=== PATIENT | female | born 1940 | race Hispanic/Latino ===

== ENCOUNTER 2016-10-17 12:10 | Inpatient (IN) | payer MEDICARE, OTHER ==
--- NOTE | 2016-10-17 13:17 | ED PDOC ---
Arrival/HPI - General Chief Complaint: Medical Clearance Time Seen by Provider: 10/17/16 12:23 Historian: Patient - History of Present Illness Narrative History of Present Illness (Text): 10/17/16 13:01 Zara Santamaria is a 76 year old female, with a history of hypertension, hyperlipidemia, urinary incontinence secondary to overactive bladder, who was sent to emergency department by PMD, , for elevated creatinine level. Patient's baseline is at 1 mg/dL which was recently elevated to 3.3 mg/dL. Patient also complains of 3 week duration of generalized weakness, chills, night sweats and occasional headache. She has also developed a cough over the past 2 days. Notes that she has increased urge to urinate once every 2 hours at night, but denies any pain or burning sensation while urinating. Denies fever, chills, dizziness, shortness of breath, chest pain, nausea, vomiting, diarrhea or any other complaints at this time. PMD; Dr. Caro Time/Duration: < week Symptom Onset: Gradual Symptom Course: Unchanged Severity Level: Mild Activities at Onset: Light Past Medical History - Provider Review Nursing Documentation Reviewed: Yes - Past History Past History: Non-Contributing - Infectious Disease Hx of Infectious Diseases: None - Cardiac Hx Pacemaker: No - Pulmonary Hx Chronic Obstructive Pulmonary Disease (COPD): Yes - Neurological Hx Paralysis: No - Hematological/Oncological Hx Blood Transfusions: No Hx Blood Transfusion Reaction: No - Musculoskeletal/Rheumatological Hx Musculoskeletal Disorders: No - Psychiatric Hx Emotional Abuse: No Hx Physical Abuse: No Hx Substance Use: No - Surgical History Other/Comment: Fibroid cyst - rt. breast - Anesthesia Hx Anesthesia Reactions: No Hx Malignant Hyperthermia: No - Suicidal Assessment Feels Threatened In Home Enviroment: No Family/Social History - Physician Review Nursing Documentation Reviewed: Yes Family/Social History: No Known Family HX Smoking Status: Former Smoker Hx Alcohol Use: Yes (SOCIALLY) Hx Substance Use: No Allergies/Home Meds Allergies/Adverse Reactions: Allergies fructose Allergy (Verified 10/17/16 12:45) NAUSEA lactose Allergy (Verified 10/17/16 12:45) NAUSEA mirabegron [From Myrbetriq] Allergy (Verified 10/17/16 12:45) ANAPHYLAXIS sucralose [From Splenda (sucralose)] Allergy (Verified 10/17/16 12:45) NAUSEA Home Medications: Home Meds Medication Instructions Recorded Confirmed RX: Citalopram Hydrobromide 40 mg PO DAILY 01/26/16 05/07/16 [Citalopram HBr] RX: Multivitamin [Multivitamins] 1 cap PO DAILY 01/26/16 05/07/16 Lipo-Flavinoid 1 tab PO BID 01/27/16 05/07/16 Lisinopril [Zestril] 20 mg PO DAILY 05/02/16 05/07/16 Vit C/E/Zn/Coppr/Lutein/Zeaxan 1 tab PO BID 05/02/16 05/07/16 [Preservision Areds 2 Softgel] RX: Omeprazole 40 mg PO DAILY 05/07/16 05/07/16 Review of Systems - Physician Review All systems were reviewed & negative as marked: Yes - Review of Systems Constitutional: Fatigue (generalized weakness ). absent: Fevers Respiratory: Normal, Cough. absent: SOB, Sputum Cardiovascular: Normal. absent: Chest Pain Gastrointestinal: Normal. absent: Abdominal Pain, Diarrhea, Nausea, Vomiting Genitourinary Female: Frequency. absent: Dysuria, Hematuria Neurological: Headache. absent: Dizziness Psychiatric: Normal Physical Exam Vital Signs Reviewed: Yes Vital Signs Temp Pulse Resp BP Pulse Ox 10/17/16 12:40 98 F 90 18 106/64 97 Temperature: Afebrile Blood Pressure: Normal Pulse: Regular Respiratory Rate: Normal Appearance: Positive for: Well-Appearing, Non-Toxic, Comfortable Pain Distress: None Mental Status: Positive for: Alert and Oriented X 3 - Systems Exam Head: Present: Atraumatic, Normocephalic Pupils: Present: PERRL Conjunctiva: Present: Normal Respiratory/Chest: Present: Clear to Auscultation, Good Air Exchange. No: Respiratory Distress, Accessory Muscle Use Cardiovascular: Present: Regular Rate and Rhythm, Normal S1, S2. No: Murmurs Abdomen: Present: Normal Bowel Sounds. No: Tenderness, Distention, Peritoneal Signs Neurological: Present: GCS=15, CN II-XII Intact, Speech Normal Skin: Present: Warm, Dry, Normal Color. No: Rashes Psychiatric: Present: Alert, Oriented x 3, Normal Insight, Normal Concentration Medical Decision Making ED Course and Treatment: 10/17/16 13:19 Impression: A 76 year old female who presents to the emergency department for elevated creatinine level of 3.3. Also notes of 3 week duration of generalized weakness, chills, night sweats and occasional headache. Developed a non- productive cough 2 days ago. Differential Diagnosis include but are not limited to: Acute Renal Failure vs Electrolyte abn vs Pneumonia Plan: -- EKG -- Labs -- Chest X-ray -- Urine culture -- Urinalysis -- Reassess and disposition Progress Notes: 10/17/16 13:22 EKG interpreted by me: Sinus Lito at 56 bpm. normal axis normal interval. 10/17/16 14:21 CXR negative for PNA. Potassium mildly elevated and Kayexalate ordered. Creatinine elevated more than previous. Discussed case with Dr. Barbosa who will place on full admission under his service. - Lab Interpretations Lab Results: 10/17/16 13:40 10/17/16 13:40 Lab Results 10/17/16 13:40: WBC 7.6, RBC 3.28 L, Hgb 9.3 L, Hct 28.1 L, MCV 85.7, MCH 28.4, MCHC 33.1, RDW 14.3, Plt Count 460 H, MPV 9.2, Gran % 71.7 H, Lymph % (Auto) 17.9 L, Hancock % (Auto) 5.5, Eos % (Auto) 4.0, Baso % (Auto) 0.9, Gran # 5.44, Lymph # 1.4, Hancock # 0.4, Eos # 0.3, Baso # 0.07, Sodium 134, Potassium 5.1 H, Chloride 103, Carbon Dioxide 20 L, Anion Gap 16, BUN 46 H, Creatinine 3.4 H, Est GFR ( Amer) 16, Est GFR (Non-Af Amer) 13, Random Glucose 87, Calcium 9.1, Total Bilirubin 0.5, AST 38, ALT 21, Alkaline Phosphatase 117, Total Protein 8.3, Albumin 3.5, Globulin 4.7, Albumin/Globulin Ratio 0.7 L I have reviewed the lab results: Yes - RAD Interpretation Radiology Orders: 10/17/16 13:06 CXR [CHEST PORTABLE] [RAD] Stat Business Line Manager: Radiologist - EKG Interpretation Interpreted by ED Physician: Yes Type: 12 lead EKG - Scribe Statement The provider has reviewed the documentation as recorded by the Scribe Rowan Palmerraman Provider Attestation: All medical record entries made by the Becca were at my direction and personally dictated by me. I have reviewed the chart and agree that the record accurately reflects my personal performance of the history, physical exam, medical decision making, and the department course for this patient. I have also personally directed, reviewed, and agree with the discharge instructions and disposition. Disposition/Present on Arrival - Present on Arrival Any Indicators Present on Arrival: No History of DVT/PE: No History of Uncontrolled Diabetes: No Urinary Catheter: No History of Decub. Ulcer: No History Surgical Site Infection Following: None - Disposition Have Diagnosis and Disposition been Completed?: Yes Diagnosis: Hyperkalemia, Acute renal failure Disposition: HOSPITALIZED Disposition Time: 14:22 Patient Plan: Admission Condition: GUARDED
[2016-10-17 13:42] LABS: ADD MANUAL DIFF? NO
--- NOTE | 2016-10-17 13:44 | RAD ---
HISTORY: cough r/o pna COMPARISON: 03/11/2013 FINDINGS: LUNGS: No active pulmonary disease. PLEURA: No significant pleural effusion identified, no pneumothorax apparent. CARDIOVASCULAR: Normal. OSSEOUS STRUCTURES: No significant abnormalities. VISUALIZED UPPER ABDOMEN: Normal. OTHER FINDINGS: None. IMPRESSION: No active disease.
[2016-10-17 13:54] LABS: BASO # 0.07 K/mm3 (0.0-2.0); BASO % 0.9 % (0.0-3.0); EOS # 0.3 (0.0-0.7); GRAN # 5.44 (1.4-6.5); GRAN % 71.7 % (50.0-68.0); HEMATOCRIT 28.1 % (36.0-48.0); LYMPH # 1.4 (1.2-3.4); LYMPH % 17.9 % (22.0-35.0); MEAN CELL VOLUME 85.7 fL (80.0-105.0); MEAN CORPUSCULAR HEMOGLOBIN 28.4 pg (25.0-35.0); MEAN CORPUSCULAR HGB CONC 33.1 g/dl (31.0-37.0); MEAN PLATELET VOLUME 9.2 fl (7.0-11.0); MONO # 0.4 (0.1-0.6); MONO % 5.5 % (1.0-6.0); PLATELET COUNT 460 10^3/uL (120.0-450.0); RED CELL DISTRIBUTION WIDTH 14.3 % (11.5-14.5); WHITE BLOOD COUNT 7.6 10^3/ul (4.5-11.0)
[2016-10-17 13:55] LABS: ALB/GLOB RATIO 0.7 (1.1-1.8); BILIRUBIN,TOTAL 0.5 mg/dL (0.2-1.3); CALCIUM 9.1 mg/dL (8.4-10.5); POTASSIUM 5.1 mmol/L (3.6-5.0); TOTAL PROTEIN 8.3 g/dL (5.8-8.3)
[2016-10-17] MEDS ORDERED: Sod Polystyrene Sulf 15 gm/60 ml Oral Susp PO STA (14:46)
[2016-10-17 16:11] LABS: URINE BILIRUBIN NEGATIVE (NEGATIVE); URINE BLOOD SMALL (NEGATIVE); URINE GLUCOSE (UA) NEGATIVE (NEGATIVE); URINE KETONE NEGATIVE (NEGATIVE); URINE LEUKOCYTE ESTERASE MODERATE Leu/uL (NEGATIVE); URINE PROTEIN TRACE mg/dL (<30 mg/dL); URINE UROBILINOGEN 0.2 E.U./dL (<1 E.U./dL)
[2016-10-17 16:15] LABS: URINE APPEARANCE CLEAR (CLEAR); URINE COLOR YELLOW (YELLOW)
[2016-10-17 16:55] LABS: URINE BACTERIA FEW (NEG)
[2016-10-17] MEDS ORDERED: Albuterol-Ipratrop 3 mg / 0.5 (3 ml) UD IH PRN (17:03)
[2016-10-17] MEDS ORDERED: Sodium Chloride 0.9% 1,000 ML IV SCH (17:15)
[2016-10-17 21:25] VITALS: BMI 23.5
[2016-10-17] MEDS ORDERED: Pneumococcal 23-Valent Vaccine IM ONE (21:25)
--- NOTE | 2016-10-17 22:19 | CP.PCM.PN ---
Subjective - Date & Time of Evaluation Date of Evaluation: 10/17/16 Time of Evaluation: 22:18 - Subjective Subjective: Patient was seen at bedside because she complained of head ache, mild, right frontal areas, states that she has sinus problem. Denies nausea, vomiting, paraesthesia. Medical record was reviewed. This 76 year old woman was admitted with head ache, chill , night sweat, generalized weakness, hyperkalemia, ARF. Has PMH of HTN, HLD, overactive bladder, renal insufficiency, right breast fibroid cyst ,ex smoker, Objective - Vital Signs/Intake and Output Vital Signs (last 24 hours): Temp Pulse Resp BP Pulse Ox 98 F 73 18 112/59 L 98 10/17/16 21:09 10/17/16 21:09 10/17/16 21:09 10/17/16 21:09 10/17/16 16:55 Intake and Output: 10/17/16 10/18/16 18:59 06:59 Intake Total 480 Balance 480 - Medications Medications: Current Medications Albuterol/Ipratropium (Duoneb 3 Mg/0.5 Mg (3 Ml) Ud) 3 ml IH [id number] PRN PRN Reason: Shortness of Breath Citalopram Hydrobromide (Celexa) 40 mg PO DAILY VIVIANE Sodium Chloride (Sodium Chloride 0.9%) 1,000 mls @ 75 mls/hr IV .[id number] VIVIANE - Constitutional Appears: Well, No Acute Distress - Head Exam Head Exam: ATRAUMATIC, NORMAL INSPECTION, NORMOCEPHALIC - Eye Exam Eye Exam: Normal appearance - ENT Exam ENT Exam: Normal External Ear Exam - Neck Exam Neck Exam: Normal Inspection - Respiratory Exam Respiratory Exam: NORMAL BREATHING PATTERN - Cardiovascular Exam Cardiovascular Exam: absent: JVD - GI/Abdominal Exam GI & Abdominal Exam: absent: Distended - Rectal Exam Rectal Exam: Deferred - Extremities Exam Extremities Exam: Normal Inspection - Back Exam Back Exam: NORMAL INSPECTION - Neurological Exam Neurological Exam: Alert, Oriented x3 - Psychiatric Exam Psychiatric exam: Normal Affect, Normal Mood - Skin Skin Exam: Normal Color Assessment and Plan - Assessment and Plan (Free Text) Assessment: A/P:Stress head ache. Head ache 2* to sinus problem. HTN. HLD. Ex smoker. Tylenol 640 mg PO now. Continue present management.
[2016-10-18 07:58] LABS: HEMATOCRIT 25.4 % (36.0-48.0); MEAN CELL VOLUME 86.1 fL (80.0-105.0); MEAN CORPUSCULAR HEMOGLOBIN 28.1 pg (25.0-35.0); MEAN CORPUSCULAR HGB CONC 32.7 g/dl (31.0-37.0); RED CELL DISTRIBUTION WIDTH 14.6 % (11.5-14.5); WHITE BLOOD COUNT 8.3 10^3/ul (4.5-11.0)
[2016-10-18 08:18] LABS: ALB/GLOB RATIO 0.7 (1.1-1.8); BILIRUBIN,TOTAL 0.4 mg/dL (0.2-1.3); CALCIUM 8.7 mg/dL (8.4-10.5); POTASSIUM 4.8 mmol/L (3.6-5.0); TOTAL PROTEIN 7.4 g/dL (5.8-8.3)
[2016-10-18] MEDS: Sodium Chloride 0.9% 1,000 ML IV SCH ×2 (08:21→22:12)
--- NOTE | 2016-10-18 08:47 | HP ---
CHIEF COMPLAINT AND HISTORY OF PRESENT ILLNESS: This is a 76-year-old female who is coming into the hospital because of acute kidney injury. She has a past medical history of hypertension, dyslipidemi a, incontinence. The patient had gone to see her primary care doctor, and she was found to have an e levated creatinine of 3.3. The patient has been complaining of weakness and fatigue. She has been h aving occasional headaches. She says she has been coughing at times. The patient has been having di fficulty with urinating. She says she has been urinating every 2 hours, and so she was started on ne w medication for her overactive bladder. She does take Zestril for hypertension. She has also been taking omeprazole for her GERD. The patient has no complaints of any abdominal pain. No back pain, no dysuria or no nocturia. She says okay. She does not use significant amounts of NSAIDs [id number]. She denies a ny use any [id number] herbal preparations. All other review of symptoms are within normal limits, except as mentioned. She says she has been ea ting well. She denies any metallic taste in her mouth. She denies any form of . She denies an y edema in legs or around the eyes. ALLERGIES TO FRUCTOSE, LACTOSE, SUCRALOSE, AND MIRABEGRON. PAST MEDICAL HISTORY: 1. Dyslipidemia. 2. Hypertension. 3. Gastritis. 4. Breast CA. 5. Overactive bladder. 6. Depression. 7. COPD. PAST SURGICAL HISTORY: Right breast surgery secondary to a cyst. SOCIAL HISTORY: She did smoke, but quit in 1987. She was smoking pack to a ixtj-mht-x-half a day. She drinks socially. FAMILY HISTORY: Noncontributory. No family history of kidney disease. VITALS: Temperature is 98, pulse is 73, blood pressure is 112/59, respirations 18, O2 saturation 98% . Height is 5 feet 4 inches, weight is 137 pounds, BMI is 23.5. GENERAL: Patient lying in bed, flat, and in no apparent distress. HEAD AND NECK EXAM: Atraumatic, normocephalic. Conjunctivae are pink. Throat clear and mouth with moist mucosa. Oropharynx benign. EYES: Extraocular movements are intact. PERRLA. NECK: Supple. No JVD, thyromegaly, or adenopathy. No bruits. HEART: S1 and S2 regular rate and rhythm. No murmurs, rubs, or gallops. LUNGS: Clear to auscultation bilaterally. No wheezing rales or rhonchi appreciated. No retraction s on exam. ABDOMEN: Soft, nontender, nondistended. Bowel sounds are positive in all quadrants. No rebound. No hepatosplenomegaly. EXTREMITIES: No cyanosis, clubbing, or edema. NEURO: No facial asymmetry, tongue is midline, no uvula deviation. Power is 5/5 in upper extremity and 5/5 in lower extremity. Sensation is normal in upper extremity and lower extremity. PSYCH: Awake, alert, oriented x3. No anxiety or depression symptoms. Good insight. Normal affec t. : No CVA tenderness VASCULAR: 2+ pulses in carotid and pedal pulses. SKIN: No erythema or abnormal nodules noted. SPINE: Normal curvature. LYMPHADENOPATHY: No anterior cervical or posterior cervical adenopathy. No inguinal adenopathy. LABORATORIES: White count of 7.6, hemoglobin 9.3, platelet count is 460. Chemistry shows the sodium is 134, potassium is 5.1, creatinine is 3.4. Urine shows protein is trace, glucose is negative, blo od is small, esterase is moderate. She has a urine sodium of 49, a urine creatinine of 28. Chest x-ray shows no active disease. ASSESSMENT: 1. Acute kidney injury versus chronic kidney disease. 2. Headache. 3. Hypertension. 4. Dyslipidemia. 5. History of breast cancer. 6. Former smoker. 7. Overactive bladder. PLAN: The patient is going to be admitted to the hospital. She has an elevated creatinine that is n ew. She also has anemia that is new. I am not sure of the etiology at this point. She has a renal ultrasound that has been ordered. I ordered labs to evaluate her kidney function. The patient has b een on omeprazole. 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 She has been on lisinopril and hydrochlorothiazide. I will hold that a s well. The patient to continue her citalopram for anxiety. She has been placed on IV fluids. I wi ll order for the lab studies. Will continue to follow closely. Await further results of her workup. William Bauer MD cc: [id number] TT: 10/18/2016 08:47:18 jn
[2016-10-18 09:12] LABS: IRON 84 ug/dL (45-180)
[2016-10-18] MEDS ORDERED: CITALOPRAM HBR 40 MG PO SCH (10:00)
--- NOTE | 2016-10-18 11:27 | US ---
PROCEDURE: Ultrasound of the Kidneys HISTORY: Renal Insufficiency COMPARISON: None available. TECHNIQUE: Sonogram of the kidneys. FINDINGS: RIGHT KIDNEY: Measures: 10.0 cm. Normal in size, contour and echogenicity. No stone, solid mass lesion or hydronephrosis visualized. LEFT KIDNEY: Measures: 10.5 cm. Normal in size, contour and echogenicity. No stone, solid mass lesion or hydronephrosis visualized. OTHER FINDINGS: None. IMPRESSION: Unremarkable renal sonogram.
[2016-10-18 13:08] LABS: FOLATE > 20.0 ng/mL
--- NOTE | 2016-10-18 18:08 | CARD ---
APPROVED REPORT EKG Measurement Heart [id number] <Conclusion> Normal sinus rhythm Possible Left atrial enlargement Borderline ECG
[2016-10-18 20:24] VITALS: O2SAT 98
[2016-10-19 03:40] LABS: CREATININE, RANDOM URINE 34 mg/dL (20-320)
[2016-10-19 07:40] LABS: HEMATOCRIT 24.4 % (36.0-48.0); MEAN CELL VOLUME 85.9 fL (80.0-105.0); MEAN CORPUSCULAR HEMOGLOBIN 28.2 pg (25.0-35.0); MEAN CORPUSCULAR HGB CONC 32.8 g/dl (31.0-37.0); MEAN PLATELET VOLUME 9.2 fl (7.0-11.0); RED CELL DISTRIBUTION WIDTH 14.5 % (11.5-14.5); WHITE BLOOD COUNT 6.8 10^3/ul (4.5-11.0)
[2016-10-19 07:51] LABS: ALB/GLOB RATIO 0.7 (1.1-1.8); BILIRUBIN,TOTAL 0.5 mg/dL (0.2-1.3); CALCIUM 8.7 mg/dL (8.4-10.5); MAGNESIUM 1.8 mg/dL (1.7-2.2); PHOSPHOROUS 4.5 mg/dL (2.5-4.5); POTASSIUM 4.6 mmol/L (3.6-5.0); TOTAL PROTEIN 7.4 g/dL (5.8-8.3)
[2016-10-19] MEDS ORDERED: Darbepoetin Alfa 100 mcg/ml Inj SC ONE (08:13)
[2016-10-19 08:57] VITALS: BP 105/54; PULSE 67; RESP 16; TEMP 97.8
--- NOTE | 2016-10-19 09:20 | PN ---
DATE: 10/19/2016 SUBJECTIVE: The patient has no complaints of any chest pain, no shortness of breath, no headaches or dizziness. PHYSICAL EXAMINATION: VITAL SIGNS: Temperature is 98.1, pulse is 75, blood pressure 108/54, respirations 20. GENERAL: The patient comfortable, in no acute distress. HEENT: Anicteric sclerae. Moist mucosa. NECK: No JVD or adenopathy. CARDIAC: S1/S2. No murmurs. No rubs. Regular. RESPIRATORY: Clear to auscultation bilaterally. No wheezes, rales, or rhonchi. Good air entry. ABDOMEN: Bowel sounds are positive, soft, nontender, and nondistended. EXTREMITIES: No edema. Has 1+ pulses. LABS: White count of 8.3, hemoglobin 8.3, creatinine is 3.2. The patient has a hep B and C that w as negative. The complement has been negative. The patient has eosinophils that are positive. ASSESSMENT: 1. Acute kidney injury versus chronic kidney disease. 2. Headache. 3. Hypertension. 4. Dyslipidemia. 5. Overactive bladder. PLAN: The patient is currently comfortable. At this point, I am not sure of the etiology of the pat ient's elevation of creatinine and acute kidney injury. She does have positive eosinophils and prote inuria. She may have an interstitial nephritis. She does have other serology that is pending. The patient was started on new medication for her overactive bladder. She has also been on omeprazole; t his may be possible cause of her kidney injury. Did advise her to stop taking this medication. I mendes ve held her RASHAWN inhibitor and hydrochlorothiazide. The patient's blood pressure has been stable. Wi ll discharge the patient home and have her follow up as an outpatient. May need a kidney biopsy. I will consider placing her on prednisone after reevaluating the creatinine that is pending for this mo rning. Will discharge patient home and have her follow up in the office in 1 week. CONDITION: Stable. ACTIVITY: Increase as tolerated. The renal ultrasound was also reviewed. William Bauer MD cc: [id number] TT: 10/19/2016 09:19:27 Confirmation # [id number] Dictation # [id number]
[2016-10-20 07:59] LABS: TOTAL PROTEIN, SERUM 6.4 g/dL (6.1-8.1)
[2016-10-22 18:18] LABS: BETA 1 GLOBULIN 0.3 g/dL (0.4-0.6); BETA 2 GLOBULIN 0.3 g/dL (0.2-0.5); GAMMA GLOBULIN 1.6 g/dL (0.8-1.7)
== END 2016-10-19 13:45 | disposition home or self-care (01) | DRG 684 ==
LOC: ED 12:10 → ERH 14:18 → 5RSO 16:57
PROVIDERS: ADMIT Internal Medicine Nephrology; ATTEND Internal Medicine Nephrology
DX: N17.9 Acute kidney failure, unspecified (principal); E87.5 Hyperkalemia; R80.9 Proteinuria, unspecified; J44.9 Chronic obstructive pulmonary disease, unspecified; I10 Essential (primary) hypertension; R51 Headache; E78.5 Hyperlipidemia, unspecified; N32.81 Overactive bladder; K21.9 Gastro-esophageal reflux disease without esophagitis; K29.70 Gastritis, unspecified, without bleeding; Z85.3 Personal history of malignant neoplasm of breast; Z87.891 Personal history of nicotine dependence